=== PATIENT | male | born 1990 | race Caucasian/White ===

== ENCOUNTER 2019-06-18 20:33 | Emergency (ER) | payer BC ==
[~2019-06-18] VITALS: Ht 182.9 cm; Wt 99.8 kg
--- NOTE | 2019-06-18 21:18 | NUR ---
DR. BROWN AT BEDSIDE FOR EXTENSIVE PT EVALUATION. PT IN NAD NOTED AT THIS TIME. PT IS ATTACHED TO BEDSIDE MONITOR. PT IS SITTING UP IN STRETCHER. BED IS LOCKED AND IN LOWEST POSITION. X1 SIDE RAIL UP. CALL LIGHT IS IN REACH IF IN NEED FOR ASSISTANCE.
[2019-06-18 22:06] VITALS: BP 121/86
== END 2019-06-18 22:00 | disposition home or self-care (01) ==
LOC: ER 20:33
DX: R53.83 Other fatigue (principal); H53.8 Other visual disturbances; F32.9 Major depressive disorder, single episode, unspecified; F17.210 Nicotine dependence, cigarettes, uncomplicated; F14.90 Cocaine use, unspecified, uncomplicated; F12.90 Cannabis use, unspecified, uncomplicated
CPT/HCPCS: 99282